=== PATIENT | female | born 1950 | race Caucasian/White ===

== ENCOUNTER 2023-02-17 12:19 | Outpatient (CLI) | payer MEDICARE, SELFPAY ==
--- NOTE | 2023-02-17 12:30 | CRLHL7_ITS ---
For Patients: As a result of the Century Cures Act, medical imaging exams and procedure reports are released immediately into your electronic medical record. You may view this report before your referring provider. If you have questions, please contact your health care provider. BILATERAL BREAST MRI WITHOUT GADOLINIUM FOR IMPLANT EVALUATION CLINICAL HISTORY: 72-year-old female with history of treated RIGHT breast cancer (mastectomy with implant reconstruction). RIGHT-sided pain, evaluate implant integrity. INDICATION FOR BREAST MRI: Evaluate for breast silicone implant rupture. COMPARISON STUDIES: None. TECHNIQUE: The patient was positioned prone using a breast coil. Imaging sequences were obtained using 1-1.5 mm thick slices with no gap. T2-weighted and silicone selective sequences in axial and sagittal planes were obtained for implant evaluation. BILATERAL BREAST MRI FINDINGS: There are postsurgical changes of BILATERAL mastectomy with subpectoral silicone implant placement. The implants are intact. No findings to suggest intracapsular rupture or extracapsular extravasation. IMPRESSIONS AND RECOMMENDATIONS: Intact BILATERAL implants. Clinical follow-up. ACR not applicable Dictated by Susie Graham MD @ 02/20/2023 3:11:24 PM jj/Dictated by: Susie Graham MD @ 02/20/2023 3:11:00 PM (Electronically Signed)
== END 2023-02-17 12:20 | disposition home or self-care (01) ==
PROVIDERS: PCP Family Medicine; Visit Provider Plastic Surgery
DX: N64.4 Mastodynia (principal); Z85.3 Personal history of malignant neoplasm of breast
CPT/HCPCS: 77047